=== PATIENT | male | born 1970 | race Asian ===

== ENCOUNTER 2022-05-08 11:57 | Emergency (ER) | payer OTHER ==
[~2022-05-08] VITALS: Ht 160 cm; Wt 90.7 kg
[2022-05-08 12:00] VITALS: TEMP 97.3
[2022-05-08 12:29] LABS: PLATELET COUNT 295 K/uL (142-355)
[2022-05-08 13:00] LABS: POTASSIUM 3.8 mmol/L (3.6-5.2)
[2022-05-08 13:10] LABS: PARTIAL THROMBOPLASTIN TIME 25.3 SECONDS (24.5-33.6)
[2022-05-08 14:45] VITALS: BP 159/96
== END 2022-05-08 14:54 | disposition home or self-care (01) ==
LOC: ED 11:57
PROVIDERS: Emergency Medicine
DX: R07.89 Other chest pain (principal)
CPT/HCPCS: 36415; 80053; 80307; 82550; 84484; 85027; 85610; 85730; 93005; 96374; 96375; 99284; J1885; J2270; J2405; J3490